=== PATIENT | male | born 1975 | race African-American/Black ===

== ENCOUNTER 2016-08-27 07:57 | Emergency (ER) | payer MEDICAID, OTHER ==
[~2016-08-27] VITALS: Ht 190.5 cm; Wt 86.0 kg
[2016-08-27] MEDS ORDERED: GABA-531 PO (08:01)
[2016-08-27 08:22] VITALS: BP 140/89
== END 2016-08-27 08:44 | disposition home or self-care (01) ==
LOC: EMS 07:58
DX: K40.30 Unilateral inguinal hernia, with obstruction, without gangrene, not specified as recurrent (principal); F12.90 Cannabis use, unspecified, uncomplicated; Z79.899 Other long term (current) drug therapy
CPT/HCPCS: 99282

== ENCOUNTER 2016-10-12 06:09 | Emergency (ER) | payer MEDICAID ==
[~2016-10-12] VITALS: Ht 190.5 cm; Wt 86.0 kg
[~2016-10-12 06:09] MED LIST: GABA-531 PO
[2016-10-12 06:13] VITALS: BP 144/91
[2016-10-12] MEDS ORDERED: MECLIZINE HCL 25 MG TABLET PO ONE (06:45)
[2016-10-12] MEDS ORDERED: OxyCODONE HCL/ACETAMINOPHEN 5-325 MG TABLET ONE (07:59)
== END 2016-10-12 08:30 | disposition home or self-care (01) ==
LOC: EMS 06:10
DX: H81.10 Benign paroxysmal vertigo, unspecified ear (principal)
CPT/HCPCS: 70450; 99284

== ENCOUNTER 2018-09-26 10:07 | Emergency (ER) | payer MEDICAID ==
[~2018-09-26] VITALS: Ht 190.5 cm; Wt 84.1 kg
[2018-09-26] MEDS ORDERED: METOCLOPRAMIDE HCL 5 MG/ML 2 ML VIAL IVP ONE (11:00)
[2018-09-26] MEDS ORDERED: SODIUM CHLORIDE 0.9% 1,000 ML IV ONE (11:00)
[2018-09-26] MEDS ORDERED: DiphenhydrAMINE HCL 50 MG/ML VIAL IVP ONE (11:00)
[2018-09-26] MEDS ORDERED: KETOROLAC TROMETHAMINE 30 MG/ML VIAL IVP ONE (11:00)
[2018-09-26 12:11] VITALS: BP 144/98
== END 2018-09-26 13:29 | disposition home or self-care (01) ==
LOC: EMS 10:08
DX: G43.909 Migraine, unspecified, not intractable, without status migrainosus (principal); K08.89 Other specified disorders of teeth and supporting structures; K02.9 Dental caries, unspecified; F12.90 Cannabis use, unspecified, uncomplicated; G89.29 Other chronic pain
CPT/HCPCS: 96374; 96375; 99283; J1200; J1885; J2765; J7030

== ENCOUNTER 2018-10-18 10:09 | Emergency (ER) | payer MEDICAID ==
[~2018-10-18] VITALS: Ht 190.5 cm; Wt 84.1 kg
[2018-10-18] MEDS ORDERED: KETOROLAC TROMETHAMINE 30 MG/ML VIAL IM ONE (13:15)
[2018-10-18] MEDS ORDERED: METOCLOPRAMIDE HCL 5 MG/ML 2 ML VIAL IM ONE (13:15)
[2018-10-18] MEDS ORDERED: GABAPENTIN 400 MG CAPSULE PO ONE (13:15)
[2018-10-18 13:32] VITALS: BP 141/86
== END 2018-10-18 13:59 | disposition home or self-care (01) ==
LOC: EMS 10:11
DX: S09.90XA Unspecified injury of head, initial encounter (principal); F07.81 Postconcussional syndrome; G43.909 Migraine, unspecified, not intractable, without status migrainosus; I10 Essential (primary) hypertension; G89.29 Other chronic pain; M54.5 Low back pain; F17.210 Nicotine dependence, cigarettes, uncomplicated; F12.90 Cannabis use, unspecified, uncomplicated; Z79.899 Other long term (current) drug therapy; Y08.89XA Assault by other specified means, initial encounter; X58.XXXA Exposure to other specified factors, initial encounter; Y93.89 Activity, other specified; Y92.39 Other specified sports and athletic area as the place of occurrence of the external cause; Y99.8 Other external cause status
CPT/HCPCS: 70450; 96372; 99284; 99406; J1885; J2765

== ENCOUNTER 2018-12-20 19:03 | Emergency (ER) | payer MEDICAID ==
[~2018-12-20] VITALS: Ht 190.5 cm; Wt 84.1 kg
[2018-12-20] MEDS ORDERED: KETOROLAC TROMETHAMINE 30 MG/ML VIAL IM ONE (21:00)
[2018-12-20 21:07] VITALS: BP 124/77
== END 2018-12-20 21:44 | disposition home or self-care (01) ==
LOC: EMS 19:04
DX: S46.811A Strain of other muscles, fascia and tendons at shoulder and upper arm level, right arm, initial encounter (principal); G43.909 Migraine, unspecified, not intractable, without status migrainosus; G89.29 Other chronic pain; M54.5 Low back pain; F17.210 Nicotine dependence, cigarettes, uncomplicated; F12.90 Cannabis use, unspecified, uncomplicated; Z79.899 Other long term (current) drug therapy; Z98.890 Other specified postprocedural states; W01.0XXA Fall on same level from slipping, tripping and stumbling without subsequent striking against object, initial encounter; Y93.01 Activity, walking, marching and hiking; Y92.89 Other specified places as the place of occurrence of the external cause; Y99.8 Other external cause status
CPT/HCPCS: 96372; 99283; 99406; J1885